=== PATIENT | male | born 1945 | race Caucasian/White ===

== ENCOUNTER 2024-06-11 23:04 | Inpatient (IN) | payer MEDICARE, OTHER, SELFPAY ==
[2024-06-11] VITALS (10 sets, daily range): BP systolic 99–157; BP diastolic 47–89; BMI 29.5; BMI 29.4
[2024-06-11 17:50] LABS: % Basophils 0.3 % (0-2); % Eosinophils 0.1 % (0-6); % Immature Granulocytes 0.4 % (0-0.5); % Lymphocytes 5.8 % (20.5-51.1); % Monocytes 0.8 % (1.7-9.3); % Neutrophils 92.6 % (42.2-75.2); Absolute Lymphocytes 0.5 10^3/uL (1.2-3.4); Absolute Monocytes 0.1 10^3/uL (0.1-0.6); Absolute Neutrophils 8.6 10^3/uL (1.4-6.5); Hematocrit 38.3 % (39.0-52.0); Mean Corp Hgb Conc. 36.6 g/dL (33.0-37.0); Mean Corpuscular Hgb 32.3 pg (27.0-31.0); Mean Corpuscular Volume 88.2 fL (80.0-94.0); Mean Platelet Volume 8.9 fL (7.4-10.4); Nucleated Red Blood Cells % 0 % (-); Platelet Count 127 10^3/uL (130-400); Red Blood Cell Count 4.34 10^6/uL (4.70-6.10); Red Cell Dist. Width 11.9 % (11.5-14.5); White Blood Cell Count 9.3 10^3/uL (4.8-10.8)
[2024-06-11 18:09] LABS: AST (SGOT) 27 U/L (17-59); Albumin 4.3 g/dl (3.5-5.0); Alkaline Phosphatase 78 U/L (38-126); Blood Urea Nitrogen 16 mg/dl (9-20); Calcium 9.4 mg/dl (8.4-10.2); Carbon Dioxide 20 mmol/L (22-30); Chloride 103 mmol/L (98-107); Glucose 165 mg/dl (70-99); Potassium 4.1 mmol/L (3.5-5.1); Sodium 138 mmol/L (135-145); Total Bilirubin 1.2 mg/dl (0.2-1.3); Total Protein 7.1 g/dl (6.3-8.2); eGFR > 60.00
[2024-06-11 18:26] LABS: ALT (SGPT) < 30 U/L (0-50)
[2024-06-11] MEDS: NSS 1000 IV (19:01)
[2024-06-11] MEDS: TYLENOL 1000 MG PO (19:01)
--- NOTE | 2024-06-11 19:15 | ED.GENMED ---
History of Present Illness
General
Chief Complaint: Abdominal Symptoms
Source: patient
Exam Limitations: none
Time Seen by Provider: 06/11/24 18:42
History of Present Illness
History of Present Illness:
This is a 77 year old male that comes in with c/o vomiting and just not feeling well. States that he was not feeling well after work today and that he vomited. States that it was several times but small amounts. States that he really did not feel
well this more as he takes Advil with Tylenol and he vomited this back up. States that he was recently diagnosed with Prostate cancer and daughter states that there is some question about mets to the bone. Patient denies any chemo or radation at
this time. States that he had a fever of 101.2 at home with shaking chills, nausea, vomiting, and dizzy if he gets up fast. States that he also had some burning with urination. Denies any chest pain, SOB, abd pain, diarrhea, headache.
Past History
Past History
ED Past Medical History: CAD, Cancer (Prostate CA) and Other (AAA, )
ED Past Surgical History: Cardiac (Stents)
Social History
Tobacco: Non-smoker
Alcohol: None
Personal:
Living: with family
Employment: Employed
Review of Systems
Review of Systems
All Other Systems: ROS reviewed and negative except as documented in HPI and ROS
Constitutional: Reports fever and chills
EENT: Reports no symptoms
Respiratory: Reports no symptoms; Denies cough or trouble breathing
Cardiac: Reports no symptoms; Denies chest pain
ABD/GI: Reports nausea and vomiting; Denies abdominal pain or diarrhea
: Reports dysuria; Denies frequency or urgency
Musculoskeletal: Reports no symptoms
Skin: Reports no symptoms
Neurological: Reports dizzy (if gets up fast); Denies headache
Psychiatric: Reports no symptoms
Phy Exam
General Physical Exam
General Presentation: no apparent distress
General age: appears stated age
General Skin: warm and dry
General Habitus: elderly
General Mental: alert
General Hydration: dry mucous membranes
ENT Exam
ENT Exam: TM's normal, pharynx normal and neck supple
Eye Exam
Eye Exam: EOMI
Cardiovascular Exam
Cardiovascular Exam: regular rate/rhythm, no edema, no murmur and normal peripheral pulses
Pulmonary Exam
Pulmonary Exam: lungs clear, no respiratory distress, no rales, chest non tender, no crackles, no rhonchi, no wheezing and no cough
Gastrointestinal Exam
Gastrointestinal Exam: normal bowel sounds, non tender, soft, no organomegaly, no pulsatile mass and non distended
Musculoskeletal Exam
Musculoskeletal Exam: full ROM and no edema
Skin Exam
Skin Exam: normal color, warm/dry, no rash and no petechia
Psychiatric Exam
Psychiatric Exam: normal mood/affect
Course
Orders/Labs/Results
Orders:
Orders
06/11/24 17:44
Complete Blood Count/With Diff Urgent
Comprehensive Metabolic Panel Urgent
06/11/24 18:52
0.9% Sodium Chloride 1000 ml [Nss] 1,000 ml IV BOLUS
06/11/24 18:53
Acetaminophen [Tylenol] 1,000 mg PO NOW STA
06/11/24 19:04
Lactate Level [Lactic Acid] Urgent
Troponin I Urgent
Urinalysis Reflex To Culture Urgent
Date Specimen was Collected: 06/11/24
Time Specimen was Collected: 18:55
Urine Microscopic Reflex Cult Urgent
Blood Culture Urgent
ISABELLA Source: Blood/Venous
Specimen Description:
Blood Culture Urgent
ISABELLA Source: Blood/Venous
Specimen Description:
Urine Culture Urgent
ISABELLA Source: U
Specimen Description:
Date Specimen was Collected: 06/11/24
Time Specimen was Collected: 18:55
06/11/24 19:16
Ondansetron Injectable [Zofran] 4 mg IV NOW STA
06/11/24 19:26
COVID-19 Antigen Urgent
Source: Nasal Swab
06/11/24 20:48
Lactic Acid Urgent
06/11/24 21:22
CefTRIAXone [Rocephin] 1,000 mg IV NOW STA
Abnormal Lab Results
06/11/24 06/11/24
17:44 19:04
RBC 4.34 L 10^6/uL
(4.70-6.10)
Hct 38.3 L %
(39.0-52.0)
MCH 32.3 H pg
(27.0-31.0)
Plt Count 127 L 10^3/uL
(130-400)
Absolute Neuts (auto) 8.6 H 10^3/uL
(1.4-6.5)
Absolute Lymphs (auto) 0.5 L 10^3/uL
(1.2-3.4)
Neutrophils % 92.6 H %
(42.2-75.2)
Lymphocytes % 5.8 L %
(20.5-51.1)
Monocytes % 0.8 L %
(1.7-9.3)
Carbon Dioxide 20 L mmol/L
(22-30)
Glucose 165 H mg/dl
(70-99)
Lactic Acid 2.1 H mmol/L
(0.7-2.0)
Urine Ketones 1+ A
(Negative)
Ur Occult Blood Reflex 4+ A
(Negative)
Urine Nitrite (Reflex) Positive A
(Negative)
Leukocyte Esterase Rfl 2+ A
(Negative)
Urine WBC (Reflex) >100 A /HPF
(0-5)
Urine Bacteria (Reflex) Moderate A
(Negative)
Urine Albumin (Reflex) 1+ A
(Neg - Trace)
06/11/24 17:44
06/11/24 17:44
Thrombocytopenia, Hyperglycemia, Carbon dioxide slightly low. Anion gap 15 Lactic acid 2.1, Troponin <0.012, COVID negative.
Urine positive for infection. Repeat lactic acid down to 1.8 after fluids
Vital Signs
Initial and Last Documented VS:
Initial Vital Signs
Temp Pulse Resp BP Pulse Ox
99.1 F 100 16 157/89 95
06/11/24 17:36 06/11/24 17:36 06/11/24 17:36 06/11/24 17:36 06/11/24 17:36
Last Documented Vital Signs
Temp Pulse Resp BP Pulse Ox
98.8 F 90 25 117/68 93
06/11/24 20:28 06/11/24 21:00 06/11/24 21:00 06/11/24 21:00 06/11/24 21:00
MDM/Problems Addressed
Differential Diagnosis Includes:
Viral syndrome, COVID, UTI
MDM/Problems Addressed:
This is a 78 year old male that comes in [facility] c/o vomiting and just not feeling well. States that this started after he got home from work. However, in further conversation patient did not fell well this morning and vomiting.
Will check labs. COVID, Urine.
Back into see patient and family. Explained that he has a uriniary tract infection. Will admit patient and start IV antibiotics. States that his nausea is better after the zofran. Hospitalist notified.
Chronic conditions affecting care:
NA
Acute Exacerbation and/or Progression of Chronic Illness:
NA
*Pulse Oximetry
Patient hypoxic: no
*Job Lithographer Interpretation
Rate: Job Lithographer- N/A
*Critical Care Note
Total Time (30-74mins, 75-104mins- exclusive of procedures): Not Applicable
ED Attending Note
-
Portions of this chart may have been created with voice recognition software.� Occasional wrong word or��sound alike� substitutions may have occurred due to the inherent limitations of voice recognition software.
Discharge Plan
Departure
Patient Disposition: Admit
Date of Disposition: 06/11/24
Time of Disposition: 21:27
Admit to: Med/Surg
Presentation/result/management discussed w/ accepting MD/DO: Hospitalist
Patient with high blood pressure during this ER visit?: No
Condition: Good
Covid-19: Negative COVID-19
Discharge Problem:
Urinary tract infection
Referrals:
Bouchra Atkins DO [Family Provider] -
Interventions
Interventions:
*Risk Screen - Suicide Last Done: 06/11/24 18:23
*General Assessment Last Done: 06/11/24 18:23
*Neglect/Abuse Screening Last Done: 06/11/24 18:23
ED- Fall Risk Assessment Last Done: 06/11/24 18:23
HX-Dzpejb-Aaorhccogy Assessment Last Done: 06/11/24 18:23
Discharge Date and Time
Print Language: SYRIAC
[2024-06-11] MEDS: ZOFRAN 4 MG IV (19:26)
[2024-06-11 19:38] LABS: Lactic Acid 2.1 mmol/L (0.7-2.0)
[2024-06-11 19:51] LABS: Troponin I < 0.012 ng/ml
[2024-06-11 19:53] LABS: COVID-19 Antigen Negative (Negative)
[2024-06-11 20:50] LABS: Urine Albumin 1+ (Neg - Trace); Urine Bilirubin Negative (Negative); Urine Character Very Cloudy (Clear); Urine Color Yellow; Urine Glucose Negative (Negative); Urine Ketone 1+ (Negative); Urine Leukocyte 2+ (Negative); Urine Nitrite Positive (Negative); Urine Occult Blood 4+ (Negative); Urine Urobilinogen Negative (Neg - 1+)
[2024-06-11 21:05] LABS: Lactic Acid 1.8 mmol/L (0.7-2.0)
[2024-06-11 21:16] LABS: Urine White Cell >100 /HPF (0-5)
[2024-06-11 21:17] LABS: Urine Bacteria Moderate (Negative)
[2024-06-11] MEDS: ROCEPHIN 1000 MG IV (21:28)
--- NOTE | 2024-06-11 21:32 | HPS.HSE ---
Family Physician
-
Family Physician: Bouchra Atkins
Chief Complaint
-
vomitting
History of Present Illness
77 year old male with past medical history for coronary artery disease status post cardiac stent, hyperlipidemia, hypertension, recently diagnosed prostate cancer urinary frequency last night, dysuria, multiple episodes of vomiting bile, shakes and
fever 101.2. Patient denied any headache, dizziness, syncopal episode. Patient denied any chest pain, short of breath, runny nose, congestion. Patient denied any abdominal and diarrhea.
Positive urinalysis. Received a dose of ceftriaxone, Tylenol, Zofran, normal saline. Blood culture sent from ER
Medical History
Past Medical History
Past Medical History: Reports Other
Additional Past Medical History:
coronary artery disease
Hyperlipidemia
Hypertension
Past Surgical History: Reports Other
Additional Past Surgical History:
Cardiac stents
Left knee replacement
Sinus surgery
Social History
Tobacco: Non-smoker
Alcohol: Occasional
Drug: None
Personal:
Living: With Family
Family History
Family History: Not pertinent
Allergies / Home Medications
Allergies reflects when Allergies were last updated in [email or web address].
Home Medications with original date entered in [email or web address]
Allergy/Medication List:
Allergies
Allergy/AdvReac Type Severity Reaction Status Date / Time
No Known Allergies Allergy Unverified 06/11/24 18:50
Home Medications
aspirin 81 mg chewable tablet 81 mg PO DAILY 06/11/24
atorvastatin 20 mg tablet 20 mg PO DAILY 06/11/24
ibuprofen 125 mg-acetaminophen 250 mg tablet (Advil Dual Action) 1 tab PO Q8HPRN PRN mild pain 06/11/24
metoprolol succinate 25 mg tablet,extended release 24 hr 12.5 mg PO DAILY 06/11/24
therapeutic multivitamin 1 tab PO DAILY 06/11/24
Review of Systems
-
Constitutional: Reports Fever, Fatigue and Chills
EENT: Reports No Symptoms
Respiratory: Reports No Symptoms
Cardiac: Reports No Symptoms
Abdomen/GI: Reports Vomiting
: Reports Dysuria and Frequency
Musculoskeletal: Reports No Symptoms
Skin: Reports No Symptoms
Neurological: Reports No Symptoms
Endocrine: Reports No Symptoms
Hematologic/Lymphatic: Reports No Symptoms
Psych: Reports No Symptoms
Physical Exam
Vital Signs
Vital Signs
Temp Pulse Resp BP Pulse Ox
98.8 F 90 25 117/68 93
06/11/24 20:28 06/11/24 21:00 06/11/24 21:00 06/11/24 21:00 06/11/24 21:00
Physical Exam
General: Well Developed, Well Nourished and No Apparent Distress
HEENT: NormoCephalic, Moist mucous membranes and Atraumatic
Respiratory: Clear
Cardiac: S1/S2 and Regular Rhythm; No Murmur or Rub
GI: Soft, Non Tender, Non Distended and Normal Bowel Sounds; No Organomegaly
Rectal: Deferred by Provider
Musculoskeletal: No Clubbing, No Cyanosis and No Edema
Skin: No Rash
Neuro: AO x 3 and Nonfocal/grossly intact
Psych: Calm
Laboratory Results
-
06/11/24 17:44
06/11/24 17:44
Laboratory Results
Lactic Acid 1.8 mmol/L (0.7-2.0) 06/11/24 20:48
Total Bilirubin 1.2 mg/dl (0.2-1.3) 06/11/24 17:44
AST 27 U/L (17-59) 06/11/24 17:44
ALT < 30 U/L (0-50) 06/11/24 17:44
Alkaline Phosphatase 78 U/L (38-126) 06/11/24 17:44
Troponin I < 0.012 ng/ml 06/11/24 19:04
Data Reviewed
-
Lab Data: Labs Reviewed by me
Impression/Plan
-
# Urinary tract infection
-IV ceftriaxone
-blood cultures and urine culture sent from ER
-Fluids continued
-Continue to monitor
# coronary artery disease
-Status post cardiac stent
-Aspirin continued
#hyperlipidemia
-Statin continued
#essential hypertension
-Hold metoprolol
# DVT prophylaxis
-Heparin subcu
# Newly diagnosis of prostate cancer
-Follows with urology as outpatient
# CODE STATUS
-Full code
--- NOTE | 2024-06-11 21:52 | W.PN.UPDATE ---
Update Note
Progress Note Update
This note serves as an addendum to the H&P by critical care physician assistant JANA Varsha SHIELDS
HPI
77M recently Dxed Prostate CA, CAD with stents seen at ER for evaluation of vomiting and become unwell.
- At home, fever of 101.2 with chills associated with nausea and vomiting several times but small amounts.
- Not tolerated to Advil with Tylenol and he vomited this back up. S
- No recent chemo or XRT at this time.
F/U at [facility] for prostate CA
- s/p Prostate Biopsy 4 weeks ago
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
ROS
- Dizzy if he gets up fast
- Some burning with urination.
- Denies any chest pain, SOB, abd pain, diarrhea, headache.
Reviewed VS: T max at ER 100.1 BP 117/68 HR 90
PE
Gen: NAD, not toxic looking
HEENT: anicteric
Neck: supple
Lungs: CTA
Cor: RRR S1 S2
Abdomen: soft benign abdomen
GORE SEAMER: AA O3
MS: No edema
Psych: nl mood and affect
Data
Laboratory Tests
06/11/24 06/11/24 06/11/24
17:44 19:04 19:26
WBC 9.3
Hgb 14.0
Plt Count 127 L
Creatinine 1.1
eGFR > 60.00
Lactic Acid 1.8
Troponin I < 0.012
Urine Nitrite (Reflex) Positive A
Leukocyte Esterase Rfl 2+ A
Urine WBC (Reflex) >100 A
Urine Bacteria (Reflex) Moderate A
SARS-CoV-2 Antigen Negative
BCx sent
No prior DH admission:
ASSESSMENT & PLAN
Symptomatic UTI associated with chills and vomiting
- Thrombocytopenia due to impending sepsis
- at risk for evoking sepsis
- Evaluate for bacteremia: f/u BCx
- f/u UCx
- s/p 1 L NS IVF - cont IV NS @ 100/H
- Empiric IV CFTZ
Recently Dxed prostate CA
- Recent whole body CT scan POS for metastatic spine dz
- not on chemo or XRT
- F/U at [facility] for prostate CA - obtain records
- Family favors out patient f/u with Urologist
Essential HTN
- Not on any anti HTN meds
HX CAD with stents
Family is inquiring about base PCP
DVT Px: SQH
Code: Full
IP TLM
[2024-06-12] VITALS (12 sets, daily range): BP systolic 105–151; BP diastolic 60–121
[2024-06-12] MEDS: NSS 1000 IV ×3 (00:03→20:12)
[2024-06-12] MEDS: TYLENOL 650 MG PO ×2 (03:21→20:14)
[2024-06-12 06:48] LABS: Glucose - Point of Care 127 mg/dl (70-99)
[2024-06-12] MEDS: OFIRMEV 100 IV (07:04)
--- NOTE | 2024-06-12 07:08 | W.PN.UPDATE ---
Update Note
Progress Note Update
Rapid response called for patient rigoring with temp 103.1. Admitted last evening with UTI and has hx of prostate issue. Was given Ceftriaxone and started on NS IVF. Lactic at that time was <2. Ofirmiv ordered for now as well as cooling blanket.
Blood cultures drawn on admit. TT to Dr. Steiner for day team follow up.
[2024-06-12 07:33] LABS: AST (SGOT) 31 U/L (17-59); Albumin 4.1 g/dl (3.5-5.0); Alkaline Phosphatase 72 U/L (38-126); Blood Urea Nitrogen 16 mg/dl (9-20); Carbon Dioxide 15 mmol/L (22-30); Chloride 105 mmol/L (98-107); Estimated Creatinine Clearance 51 ml/min; Glucose 144 mg/dl (70-99); Potassium 4.4 mmol/L (3.5-5.1); Sodium 139 mmol/L (135-145); Total Bilirubin 1.5 mg/dl (0.2-1.3); Total Protein 6.7 g/dl (6.3-8.2); eGFR > 60.00
[2024-06-12 07:36] LABS: Lactic Acid 8.1 mmol/L (0.7-2.0)
[2024-06-12 07:44] LABS: Hematocrit 37.9 % (39.0-52.0); Hemoglobin 13.4 g/dL (13.0-18.0); Mean Corp Hgb Conc. 35.4 g/dL (33.0-37.0); Mean Corpuscular Volume 87.7 fL (80.0-94.0); Mean Platelet Volume 9.3 fL (7.4-10.4); Platelet Count 156 10^3/uL (130-400); Red Blood Cell Count 4.32 10^6/uL (4.70-6.10); Red Cell Dist. Width 12.1 % (11.5-14.5)
[2024-06-12 07:47] LABS: Troponin I 0.112 ng/ml
--- NOTE | 2024-06-12 07:50 | PTCARENOTE ---
Pt heart rate was in the 130-140's. Pt was shaking , diaphoretic, and labor breathing. Pt appear pale and desaturating in the low 90s' in RA. Pt was placed on 6L O2 for comfort. pt was unable to control i shakes and he had a temp of 103.1
Axillary. RR was called. Labs taking and IV acetomorphine order. Pt had an episode of vomit and incontinence. Hospitalist notified. Cooling blanket order. Pt eventually felt better and the shivering was under control. O2 weaned to 4L NC. Pt was
placed on cooling blanket, with a rectal temp of 104.5. Report was given to AM RN
[2024-06-12 08:22] LABS: ALT (SGPT) 32 U/L (0-50)
[2024-06-12 08:24] LABS: Hepatitis C Antibody Negative (Negative)
[2024-06-12] MEDS: LIPITOR 20 MG PO (08:34)
[2024-06-12] MEDS: LOW STRENGTH ASPIRIN 81 MG PO (08:34)
[2024-06-12] MEDS: HEPARIN 5000 UNITS SC ×2 (08:35→20:14)
[2024-06-12 08:58] LABS: Absolute Neutrophils -Man Diff 3.8 10^3/uL (1.4-6.5); Band Neutrophils 16 % (0-3); Lymphocytes 23 % (20-51); Segmented Neutrophils 60 % (42-75)
[2024-06-12 08:59] LABS: Normal RBC Morphology Yes; Platelets Checked Yes; Total Cells Counted 100
--- NOTE | 2024-06-12 09:04 | W.PN.HOSP.TC ---
Today's Communication/Plan
-
IV antibiotics pending cultures IV fluids
Bladder scan for retention
Trend troponin.
ECG.
Echo
Assessment / Plan
Assessment / Plan
Impression:
Urinary tract infection
Sepsis secondary to above
Gram-negative bacteremia
Non-NH troponin elevation
Other conditions
Recently diagnosed prostate carcinoma with ongoing workup.
CAD with multiple stents
Plan:
UTI
Evolving sepsis with gram-negative bacteremia.
Presenting with fever, rigors, dysuria and sense of retention at home.
Status post prostate biopsy months prior to presentation with new diagnosis of prostate carcinoma.
Bladder scan.
Bladder and renal sonogram.
Empiric antibiotics initiated ceftriaxone
ID consultation/urology consultation
Repeat blood culture for clearance.
Continue isotonic solution
Serial lactate levels
Non-NH troponin elevation
CAD with stents
ECG with sinus tachycardia and RBBB.
Chest pain-free.
Trend troponin.
Echocardiogram pending
Continue metoprolol and statin
Continue aspirin.
Medical records from PMD, urology, cardiology requested
Anticipated Discharge: > 48 hours
Subjective/Interval History
-
Date of Service: June 12, 2024
Objective Data
-
Labs:
Laboratory Results
06/12/24 06/12/24
06:00 07:04
WBC Cancelled 5.0
Hgb Cancelled 13.4
Hct Cancelled 37.9 L
Plt Count Cancelled 156 D
Sodium Cancelled 139
Potassium Cancelled 4.4
Chloride Cancelled 105
Carbon Dioxide Cancelled 15 L
BUN Cancelled 16
Creatinine Cancelled 1.2
Glucose Cancelled 144 H
Calcium Cancelled 9.0
Total Bilirubin 1.5 H
AST 31
ALT 32
Alkaline Phosphatase 72
Vital Signs:
Vital Signs
Temp Pulse Resp BP Pulse Ox
98.3 F 92 18 115/60 98
06/12/24 08:12 06/12/24 08:12 06/12/24 08:12 06/12/24 08:12 06/12/24 08:12
I&O
06/11/24 06/12/24 06/13/24
06:59 06:59 06:59
Intake Total 880 / 880
Output Total 460 / 460
Balance 420 / 420
Physical Exam
-
General: Well Developed and No Apparent Distress
HEENT: Normocephalic, Atraumatic and Moist Mucous Membranes
Respiratory: Clear to Auscultation
Cardiac: Regular Rhythm and S1/S2; Negative Murmur, Rub or Gallop
GI: Soft, Nontender, Nondistended and Normal Bowel Sounds; Negative Organomegaly
Rectal: Deferred by Provider
Musculoskeletal: No Clubbing, No Cyanosis and No Edema
Skin: Negative Rash
Neuro: Awake, Alert, Oriented, AO x 3 and Nonfocal/Grossly Intact
--- NOTE | 2024-06-12 09:11 | CON.ID ---
Consultation
-
Date/Time Consultation Requested: 06/12/2024 0853
Date/Time Consultation Performed: 06/12/2024 0915
Requesting Provider: Dr. Colby Steiner
Performing Provider: Dr. Apple Childress
Reason for Consultation: UTI/bacteremia
Chief Complaint / Past History
Chief Complaint
Painful urination
History of Present Illness
78-year-old male with recent diagnosis of prostate cancer a month ago at [facility] who presented to the hospital on June 11 with acute onset of dysuria, urinary frequency, fevers and chills. No gross hematuria. No flank pain. He was
started on ceftriaxone for UTI. Overnight he developed fever up to 104.5. Admission blood cultures are positive for gram-negative bernadette. Patient reports no history of UTIs in the past. He received antibiotic before and after prostate biopsy last
month. He could not recall the name of the antibiotic.
Past History
Additional Past Medical History:
HTN
Dyslipedemia
CAD s/p stent
prostate CA, recent dx, not on tx
L TKA
Allergy History:
No Known Allergies Allergy (Unverified 06/11/24 18:50)
Medications Reviewed: Yes
Current Antibiotics:
Ceftriaxone d2
Social History
Tobacco: Non-Smoker
Alcohol: Occasional
Drug: None
Personal:
Family History
Family History: Not Pertinent
Review of Systems
Review of Systems
General: Fever, Chills and Change in Appetite
HEENT: Negative Sinus Problems or Headache
Cardiovascular: Negative Chest Pain or Dyspnea
Respiratory: Negative Dyspnea or Cough
Gasteroenterology: Nausea and Other (no diarrhea); Negative Vomiting
Genital / Urological: Dysuria; Negative Hematuria or Flank Pain
Endocrine: Weakness
Skin / Hair / Nails: Negative Rash
Neurological: Negative Headache or Dizziness
All systems: All other systems were reviewed and were negative
Vital Signs
Temp Pulse Resp BP Pulse Ox
98.3 F 92 18 115/60 98
06/12/24 08:12 06/12/24 08:12 06/12/24 08:12 06/12/24 08:12 06/12/24 08:12
Selected Entries
06/12/24
07:45
Temp 104.5 F H
Physical Exam
Physical Exam
Constitutional: No Acute Distress and Comfortable
Eyes: No Conjunctival Hemorrhage and Sclera Anicteric
Cardiovascular: Regular Rate and S1/S2
Pulmonary: Clear
Gastrointestinal: Non Tender, Non Distended and Normal Bowel Sounds
Genito-Urinary: Bauer and Clear Urine; Negative CVA Tenderness
Extremities: Negative Edema
Neurological: AO x 3
Lab / Diagnostic Study Results
06/12/24 07:04
06/12/24 07:04
Abs Immat Gran (auto) 0.0 10^3/uL (0-0.05) 06/11/24 17:44
Absolute Neuts (auto) 8.6 10^3/uL (1.4-6.5) H 06/11/24 17:44
Absolute Lymphs (auto) 0.5 10^3/uL (1.2-3.4) L 06/11/24 17:44
Absolute Monos (auto) 0.1 10^3/uL (0.1-0.6) 06/11/24 17:44
Absolute Basos (auto) 0.0 10^3/uL (0-0.2) 06/11/24 17:44
Total Counted 100 06/12/24 07:04
Immature Gran % 0.4 % (0-0.5) 06/11/24 17:44
Neutrophils % 92.6 % (42.2-75.2) H 06/11/24 17:44
Lymphocytes % 5.8 % (20.5-51.1) L 06/11/24 17:44
Monocytes % 0.8 % (1.7-9.3) L 06/11/24 17:44
Eosinophils % 0.1 % (0-6) 06/11/24 17:44
Basophils % 0.3 % (0-2) 06/11/24 17:44
Abs Neuts (Manual) 3.8 10^3/uL (1.4-6.5) 06/12/24 07:04
Segmented Neutrophils 60 % (42-75) 06/12/24 07:04
Band Neutrophils 16 % (0-3) H 06/12/24 07:04
Lymphocytes (Manual) 23 % (20-51) 06/12/24 07:04
Lactic Acid 8.1 mmol/L (0.7-2.0) H* 06/12/24 07:04
Microbiology Results
Micro:
06/11/24 19:04 Blood Culture - Preliminary
Blood/Venous Positive culture in progress
Gram Stain - Preliminary
06/11/24 19:04 Blood Culture - Preliminary
Blood/Venous Positive culture in progress
Gram Stain - Preliminary
06/11/24 19:04 Urine Culture - Pending
Urine
Assessment / Plan
# Complicated UTI
# ESBL-Klebsiella bacteremia
# Recent hx prostate bx, + localized prostate CA
# Fever, bandemia
- DC ceftriaxone.
-Start Ertapenem 1g IV q24.
- Agree with CT a/p
- Repeat bcx in am.
- Trend temp
--- NOTE | 2024-06-12 09:41 | W.PN.UPDATE ---
Update Note
Progress Note Update
Given fairly recent prostate biopsy and reasonable concern for abscess, will order CT scan of abdomen and pelvis.
[2024-06-12 09:45] LABS: Lactic Acid 3.1 mmol/L (0.7-2.0)
[2024-06-12] MEDS: OMNIPAQUE 50 ML PO (10:38)
[2024-06-12] MEDS: INVANZ 60 MG IV (15:20)
--- NOTE | 2024-06-12 16:17 | PTCARENOTE ---
Patient transferred to IMU s/p rapid response due to sepsis. CT scan and Echo completed. Patient denying pain when asked. Bladder scan completed and results discussed with urology. Patient is afebrile. Vital signs stable. Family at bedside.
[2024-06-12] MEDS: SENOKOT-S 1 TABLET PO (17:06)
--- NOTE | 2024-06-12 17:18 | W.PN.URO.CBU ---
Today's Communication / Plan
-
no gu changes
Assessment / Plan
-
uroepsis s/p reote postae bx agree with iv ans pt is voind to completio ct scan reviewed no abcess continue present care
Diagnosis
-
Date of Service: June 12, 2024
-
Patient Diagnosis:sepsis 1 month after transrecta l needle bx pda 10 pos postae ancer had abs x wek then off 1 weklater had dysuria frequeny no rettention temp 104 ps blood cxs beeter now on iv abs
Post Op Day:
Subjective
-
improving ,min systemic ciomplaints voidin wbetteer
Objective
-
Vital Signs
Temp Pulse Resp BP Pulse Ox
98.5 F 92 18 115/60 98
06/12/24 15:00 06/12/24 08:12 06/12/24 08:12 06/12/24 08:12 06/12/24 08:12
Intake and Output
06/11/24 06/12/24 06/13/24
06:59 06:59 06:59
Intake Total 880 / 880 1750 / 1750
Output Total 460 / 460 440 / 440
Balance 420 / 420 1310 / 1310
Intake:
Oral fluids 120 / 120 200 / 200
IV fluids (Total) 760 / 760 1500 / 1500
IV piggybacks 50 / 50
Output:
Urine, Voided 10 10 440 / 440
Straight cath output 450 / 450
Laboratory Results
06/12/24 07:04
06/12/24 07:04
Review of Systems
-
Constitutional: Fever, Fatigue, Night Sweats and Chills
: Dysuria and Frequency
Physical Exam
-
General - well developed, well nourished, no acute distress
Chest - clear bilaterally
Abdomen - soft, non-tender, positive bowel sounds, no CVAT, no incisional pain or distention
Genitalia - normal
Rectal - normal
Skin - warm & dry with no rash
Neuro - AOx3, no motor deficits
Extremities - no clubbing, no cyanosis, no edema
Incision - clean, dry
Dressing - clean, dry, intact
Care Review
Data Reviewed
Discussed with: Internal Medicine, Nursing and Family
CT Scan: Image Pers Reviewed
[2024-06-12 18:13] LABS: Lactic Acid 4.3 mmol/L (0.7-2.0)
--- NOTE | 2024-06-12 18:27 | PTCARENOTE ---
Patient having difficulty urinating. Bladder scan 525, straight cath for 400 of clear yellow urine.
--- NOTE | 2024-06-12 23:11 | PTCARENOTE ---
Pt received at beginning of shift resting in bed. AAOx3. Slightly forgetful. Bed alarm on and working. Frequent needs to use urinal with <10ml urine output each time. Bladder scanned for 303 and 475. Ruth MANDEL TT'd and made aware after
multiple straight caths. Lewis ordered and placed after explanation to pt of process. Thermistor lewis placed without issue. Immediate return of 500mls cloudy yellow urine in collection bag. Stat lock placed. Admits to Naylor administered Tylenol with
good relief. Current temp 99.5. Rest of VSS. IVF infusing as ordered. Rest of assessment as documented. Turns self in bed. Call sanders within reach. Will continue to monitor.
[2024-06-13] VITALS (9 sets, daily range): BP systolic 115–146; BP diastolic 65–79
[2024-06-13] MEDS: NSS 1000 IV (04:02)
[2024-06-13 04:15] LABS: Hematocrit 32.2 % (39.0-52.0); Hemoglobin 11.8 g/dL (13.0-18.0); Mean Corp Hgb Conc. 36.6 g/dL (33.0-37.0); Mean Corpuscular Hgb 32.6 pg (27.0-31.0); Red Blood Cell Count 3.62 10^6/uL (4.70-6.10); White Blood Cell Count 7.7 10^3/uL (4.8-10.8)
[2024-06-13 04:24] LABS: Mean Platelet Volume 9.2 fL (7.4-10.4); Platelet Count 94 10^3/uL (130-400)
[2024-06-13 04:30] LABS: Blood Urea Nitrogen 14 mg/dl (9-20); Calcium 8.3 mg/dl (8.4-10.2); Carbon Dioxide 20 mmol/L (22-30); Chloride 106 mmol/L (98-107); Estimated Creatinine Clearance 61 ml/min; Glucose 110 mg/dl (70-99); Sodium 137 mmol/L (135-145); eGFR > 60.00
[2024-06-13] MEDS: HEPARIN 5000 UNITS SC ×2 (08:01→20:17)
[2024-06-13] MEDS: LOW STRENGTH ASPIRIN 81 MG PO (08:02)
[2024-06-13] MEDS: LIPITOR 20 MG PO (08:02)
[2024-06-13] MEDS: FLOMAX 0.4 MG PO (09:59)
--- NOTE | 2024-06-13 10:30 | W.PN.ID1 ---
Date of Service
Date of Service: June 13, 2024
Today's Communication
c/w ertapenem
Assessment / Plan
# Complicated UTI
# ESBL-Klebsiella bacteremia
# Recent hx prostate bx, + localized prostate CA
# Fever, bandemia
- c/w Ertapenem 1g IV q24 awaiting sensitivities
- note prolonged QTc on last EKG, however was tachycardic
- CT AP nonrevealing
- 06/13 blood culture in progress no growth to date
- Trend temp
Chief Complaint
-: UTI
Subjective / Review of Systems
afebrile
BP stable
prostate biopsy was 1 month ago
Vital Signs / Physical Exam
Vital Signs
Vital Signs
Temp Pulse Resp BP Pulse Ox
99.7 F 78 22 129/77 97
06/13/24 07:54 06/13/24 08:00 06/13/24 08:00 06/13/24 08:00 06/13/24 08:00
Physical Exam
Constitutional: No Acute Distress
Cardiovascular: Regular Rate and S1/S2; Negative Murmur or Rub
Pulmonary: Clear and Symmetric; Negative Wheezes or Rales
Gastrointestinal: Soft, Non Tender, Non Distended and Normal Bowel Sounds
Genito-Urinary: Clear Urine
Skin: Warm and Dry; Negative Rash or Jaundice
Objective Data
Lab Data
Lab Results
06/13/24 03:58
06/13/24 03:58
Estimated Creat Clear 61 ml/min 06/13/24 03:58
Lactic Acid 1.0 mmol/L (0.7-2.0) 06/12/24 21:54
Total Bilirubin 1.5 mg/dl (0.2-1.3) H 06/12/24 07:04
AST 31 U/L (17-59) 06/12/24 07:04
ALT 32 U/L (0-50) 06/12/24 07:04
Alkaline Phosphatase 72 U/L (38-126) 06/12/24 07:04
Most recent labs reviewed.
Micro Results:
06/11/24 19:04 Urine Culture - Preliminary
Urine Gram negative bacilli
06/12/24 09:22 Blood Culture - Preliminary
Blood/Venous Positive culture in progress
Gram Stain - Preliminary
06/13/24 03:58 Blood Culture - Pending
Blood/Venous
06/11/24 19:04 Blood Culture - Preliminary
Blood/Venous Klebsiella pneumoniae-ESBL
Gram Stain - Final
06/11/24 19:04 Blood Culture - Preliminary
Blood/Venous Positive culture in progress
Gram Stain - Final
--- NOTE | 2024-06-13 11:49 | W.PN.URO.CBU ---
Today's Communication / Plan
-
continue present care
Assessment / Plan
-
uroepsis s/p reote postae bx agree with iv ans pt is voind to completio ct scan reviewed no abcess continue present care add flomax voiding trial if stablke saturday
Diagnosis
-
Date of Service: June 13, 2024
-
Patient Diagnosis:
Post Op Day:
Patient Diagnosis:sepsis 1 month after transrecta l needle bx pda 10 pos postae ancer had abs x wek then off 1 weklater had dysuria frequeny no rettention temp 104 ps blood cxs beeter now on iv abs
Post Op Day:
Subjective
-
much better bot pvr 500 and lewis placed
Objective
-
Vital Signs
Temp Pulse Resp BP Pulse Ox
99.7 F 78 22 129/77 97
06/13/24 07:54 06/13/24 08:00 06/13/24 08:00 06/13/24 08:00 06/13/24 08:00
Intake and Output
06/12/24 06/13/24 06/14/24
06:59 06:59 06:59
Intake Total 880 / 880 3350 / 3350
Output Total 460 / 460 1590 / 1590
Balance 420 / 420 1760 / 1760
Intake:
Oral fluids 120 / 120 300 / 300
IV fluids (Total) 760 / 760 3000 / 3000
IV piggybacks 50 / 50
Output:
Urine, Lewis 750 / 750
Urine, Voided 440 / 440
Straight cath output 450 / 450 400 / 400
Laboratory Results
06/13/24 03:58
06/13/24 03:58
Review of Systems
-
: Difficulty Voiding
Physical Exam
-
General - well developed, well nourished, no acute distress
Chest - clear bilaterally
Abdomen - soft, non-tender, positive bowel sounds, no CVAT, no incisional pain or distention
Genitalia - normal
Rectal - normal
Skin - warm & dry with no rash
Neuro - AOx3, no motor deficits
Extremities - no clubbing, no cyanosis, no edema
Incision - clean, dry
Dressing - clean, dry, intact
Care Review
Data Reviewed
Discussed with: Hospitalist, Nursing and Family
CT Scan: Image Pers Reviewed
--- NOTE | 2024-06-13 14:08 | W.PN.HOSP.TC ---
Addendum entered and electronically signed by Luis Felipe Keita MD 06/13/24 16:46:
I saw and evaluated the patient. I reviewed the resident�s note and agree with findings and plan as documented in the resident�s note.
1. ESBL Klebsiella pneumonia UTI/bacteremia -patient underwent recent prostatic biopsy and started to having new onset of urinary discomfort/nausea/vomiting. In ER UA showing significant pyuria and bacteriuria. CT abdomen pelvis showing
prostatomegaly. No nephrolithiasis/hydronephrosis. Urine culture and blood culture reporting positive for ESBL Klebsiella pneumonia. ID involved and is currently on ertapenem. Repeat blood culture positive again from gram-negative bacilli today
2. History of prostate cancer/acute urinary retention-follows up with urologist at [facility]. Patient have some urinary retention and Bauer catheter was placed. Urology reviewed and will attempt a voiding trial. Flomax provided on urology
recommendation
3. Troponin elevation from nonischemic cardiomyopathy related -echocardiogram showing preserved EF. Have history of CAD. No ongoing chest pain.
Patient be transferred to [facility]
Original Note:
Today's Communication/Plan
-
Downgrade to med/surg
Continue ertapenem - day 2
Start Flomax
Monitor temp curve and WBC count
Assessment / Plan
Assessment / Plan
Impression:
Complicated Urinary tract infection vs prostatitis
ESBL Klebsiella bacteremia
Constipation
Non-[place] troponin elevation
HLD
History of CAD
Recent dx of prostate cancer
Plan:
Complicated UTI vs prostatitis
Afebrile, no leukocytosis, stable.
Denies abdominal pain, back pain. N,V
Repeat 1/2 positive for the ESBL Klebsiella.
UC positive for the same
Continue medical management with Ertapenem (strong gram neg coverage) - day 2
Start Flomax to help bladder relaxation
Bauer in situ
CT scan negative for pelvic abscess.
ID and urology following
ESBL Klebsiella bacteriemia
Hemodynamically stable
repeat blood cultures
Monitor temp curve and WBC count
Downgrade to med/surg
Constipation
Ordered Colace BID as needed
Non troponin [place] elevation
possible due to infection
Levels are trending down - 1.130<1.790
HLD
Continue atorvastatin
History of CAD
Continue ASA, toprol
Denies CP, SOB.
EKG changes showed RBBB and sinus tachy. However patient's HR today is normal. Elevation of HR likely due to infection/fever.
ECHO findings - Normal left ventricular size, wall thickness and systolic function. No regional wall motion abnormalities are seen. LV ejection fraction is 60-65%.
Recent dx of prostate cancer
CODE STATUS - FULL CODE
DVT ppx- Heparin SC
DIET- chol lowering
Anticipated Discharge: 24 - 48 hours
Subjective/Interval History
-
Date of Service: June 13, 2024
Patient denies abdominal pain, nausea, vomiting. He reports of being constipated. He was given docusate last night which improved his BM. Patient has a fever of 100.2 last night. Denies chills, fatigue.
Objective Data
-
Labs:
Laboratory Results
06/13/24
03:58
WBC 7.7
Hgb 11.8 L
Hct 32.2 L
Plt Count 94 L D
Sodium 137
Potassium 4.0
Chloride 106
Carbon Dioxide 20 L
BUN 14
Creatinine 1.0
Glucose 110 H
Calcium 8.3 L
Vital Signs:
Vital Signs
Temp Pulse Resp BP Pulse Ox
100.6 F H 82 25 132/68 97
06/13/24 11:00 06/13/24 12:00 06/13/24 12:00 06/13/24 12:00 06/13/24 12:00
I&O
06/12/24 06/13/24 06/14/24
06:59 06:59 06:59
Intake Total 880 / 880 3350 / 3350
Output Total 460 / 460 1590 / 1590
Balance 420 / 420 1760 / 1760
Review of Systems
-
History Source: Patient
All other systems: Reviewed and negative
Physical Exam
-
General: Comfortable and Conversant
HEENT: Normocephalic and Atraumatic
Respiratory: Clear to Auscultation
Cardiac: Regular Rhythm and S1/S2
GI: Soft, Nontender and Nondistended
Genito-urinary: Bauer
Musculoskeletal: No Edema
Neuro: AO x 3
Psych: Calm
Data Reviewed
-
CT Scan: Report Reviewed by me and Discussed with Physician
Labs: Labs Reviewed by me and Discussed with Physician
[2024-06-13] MEDS: INVANZ 60 MG IV (14:57)
[2024-06-13] MEDS: TYLENOL 650 MG PO ×2 (16:16→20:17)
[2024-06-13] MEDS: COLACE 100 MG PO (20:17)
[2024-06-14] VITALS: BP 133/76
[2024-06-14 04:43] LABS: % Basophils 0.4 % (0-2); % Eosinophils 0.4 % (0-6); % Immature Granulocytes 0.4 % (0-0.5); % Lymphocytes 11.1 % (20.5-51.1); % Monocytes 4.7 % (1.7-9.3); Absolute Lymphocytes 0.6 10^3/uL (1.2-3.4); Absolute Monocytes 0.3 10^3/uL (0.1-0.6); Absolute Neutrophils 4.6 10^3/uL (1.4-6.5); Hematocrit 33.6 % (39.0-52.0); Hemoglobin 12.2 g/dL (13.0-18.0); Mean Corp Hgb Conc. 36.3 g/dL (33.0-37.0); Mean Corpuscular Volume 88.2 fL (80.0-94.0); Nucleated Red Blood Cells % 0 % (-); Platelet Count 122 10^3/uL (130-400); Red Blood Cell Count 3.81 10^6/uL (4.70-6.10); Red Cell Dist. Width 11.9 % (11.5-14.5); White Blood Cell Count 5.5 10^3/uL (4.8-10.8)
[2024-06-14 05:02] LABS: Blood Urea Nitrogen 12 mg/dl (9-20); Calcium 8.3 mg/dl (8.4-10.2); Carbon Dioxide 23 mmol/L (22-30); Chloride 106 mmol/L (98-107); Estimated Creatinine Clearance 68 ml/min; Glucose 111 mg/dl (70-99); Sodium 138 mmol/L (135-145); eGFR > 60.00
--- NOTE | 2024-06-14 05:02 | PTCARENOTE ---
Pt appeared to have a good nights rest. respirations even and unlabored. Vitals stable at this time. Temp remaining under 99.0. Call sanders with inreach. Bed alarm on. Assessment care and vitals as charted.
[2024-06-14 05:12] LABS: Troponin I 0.282 ng/ml
[2024-06-14] MEDS: FLOMAX 0.4 MG PO (07:51)
[2024-06-14] MEDS: HEPARIN 5000 UNITS SC ×2 (07:51→20:33)
[2024-06-14] MEDS: LIPITOR 20 MG PO (07:51)
[2024-06-14] MEDS: LOW STRENGTH ASPIRIN 81 MG PO (07:51)
[2024-06-14 08:00] VITALS: BP 143/86
--- NOTE | 2024-06-14 08:34 | W.PN.HOSP.TC ---
Addendum entered and electronically signed by Luis Felipe Keita MD 06/14/24 13:59:
I saw and evaluated the patient. I reviewed the resident�s note and agree with findings and plan as documented in the resident�s note.
1. ESBL Klebsiella pneumonia UTI/bacteremia -patient underwent recent prostatic biopsy and started to having new onset of urinary discomfort/nausea/vomiting. In ER UA showing significant pyuria and bacteriuria. CT abdomen pelvis showing
prostatomegaly. No nephrolithiasis/hydronephrosis. Urine culture and blood culture reporting positive for ESBL Klebsiella pneumonia. ID involved and is currently on ertapenem. Repeat blood culture positive for klebsiella.
2. History of prostate cancer/acute urinary retention-follows up with urologist at [facility]. Patient have some urinary retention and Bauer catheter was placed. Urology reviewed and will attempt a voiding trial. Flomax provided on urology
recommendation
3. Troponin elevation from nonischemic cardiomyopathy related -echocardiogram showing preserved EF. Have history of CAD. No ongoing chest pain.
Original Note:
Today's Communication/Plan
-
repeat blood cultures
monitor temp
continue ertapenem day 3
downgrade to med/surg
Assessment / Plan
Assessment / Plan
Impression:
Complicated Urinary tract infection vs prostatitis
ESBL Klebsiella bacteremia
Constipation
Non-[place] troponin elevation
HLD
History of CAD
Recent dx of prostate cancer
Plan:
Complicated UTI vs prostatitis
likely due to recent prostate biopsy
Afebrile, no leukocytosis, stable.
Denies abdominal pain, back pain. N,V
repeat 2/2 shows no growth
Continue medical management with Ertapenem (strong gram neg coverage) - day 3
Flomax to help bladder relaxation
Bauer in situ for urinary retention
Voiding trails
CT scan negative for pelvic abscess. It shows enlarged prostate.
ID and urology following
ESBL Klebsiella bacteriemia
Hemodynamically stable
repeat blood cultures 2/2 shows no growth
Continue ertapenem day 3.
Treatment for gram-negative bacteremia is for at least 2 weeks.
Monitor temp curve
Downgrade to med/surg
Constipation
Ordered Colace BID as needed
Non troponin [place] elevation
possible due to infection
Levels are trending down - 1.130<1.790
HLD
Continue atorvastatin
History of CAD
Continue ASA, toprol
Denies CP, SOB.
EKG changes showed RBBB and sinus tachy. However patient's HR today is normal. Elevation of HR likely due to infection/fever.
ECHO findings - Normal left ventricular size, wall thickness and systolic function. No regional wall motion abnormalities are seen. LV ejection fraction is 60-65%.
Recent dx of prostate cancer
CODE STATUS - FULL CODE
DVT ppx- Heparin SC
DIET- chol lowering
Anticipated Discharge: 24 - 48 hours
Subjective/Interval History
-
Date of Service: June 14, 2024
Patient denies abdominal pain, nausea, vomiting.
Objective Data
-
Labs:
Laboratory Results
06/14/24
04:27
WBC 5.5
Hgb 12.2 L
Hct 33.6 L
Plt Count 122 L D
Sodium 138
Potassium 4.0
Chloride 106
Carbon Dioxide 23
BUN 12
Creatinine 0.9
Glucose 111 H
Calcium 8.3 L
Vital Signs:
Vital Signs
Temp Pulse Resp BP Pulse Ox
98.4 F 62 17 133/76 97
06/14/24 07:31 06/14/24 04:00 06/14/24 04:00 06/14/24 00:00 06/13/24 20:29
I&O
06/13/24 06/14/24 06/15/24
06:59 06:59 06:59
Intake Total 3350 / 3350 360 / 360
Output Total 1590 / 1590 2500 / 2500
Balance 1760 / 1760 -2140 / -2140
Review of Systems
-
History Source: Patient
All other systems: Reviewed and negative
Physical Exam
-
General: Comfortable
HEENT: Normocephalic and Atraumatic
Respiratory: Clear to Auscultation
Cardiac: Regular Rhythm and S1/S2
GI: Soft, Nontender and Nondistended
Genito-urinary: Bauer
Musculoskeletal: No Edema
Neuro: AO x 3
Psych: Calm
Data Reviewed
-
Labs: Labs Reviewed by me and Discussed with Physician
--- NOTE | 2024-06-14 08:49 | W.PN.ID1 ---
Date of Service
Date of Service: June 14, 2024
Today's Communication
- getting core Ts - fever defined as over 101.0; no jennifer fevers overnight
- had lewis placed for retention with 500 ccs out output - has been started on flomax this admission
- repeat blood cultures not necessary for gram negative bacteremia with known source, dissemination unlikely
Assessment / Plan
# Complicated UTI
# ESBL-Klebsiella bacteremia
# Recent hx prostate bx, + localized prostate CA
# Fever, bandemia
- getting core Ts - fever defined as over 101.0; no jennifer fevers overnight
- had lewis placed for retention with 500 ccs out output - has been started on flomax this admission
- repeat blood cultures not necessary for gram negative bacteremia with known source, dissemination unlikely
- c/w Ertapenem 1g IV q24 awaiting sensitivities
- CT AP nonrevealing
- 06/13 blood culture in progress no growth to date
- Trend temp
Chief Complaint
-: UTI
Subjective / Review of Systems
getting core Ts - fever defined as over 101.0; no jennifer fevers overnight - patient reports he didnt feel feverish
bp stable
had lewis placed for retention with 500 ccs out output
Vital Signs / Physical Exam
Vital Signs
Vital Signs
Temp Pulse Resp BP Pulse Ox
98.4 F 62 17 133/76 97
06/14/24 07:31 06/14/24 04:00 06/14/24 04:00 06/14/24 00:00 06/13/24 20:29
Physical Exam
Constitutional: No Acute Distress
Cardiovascular: Regular Rate and S1/S2; Negative Murmur or Rub
Pulmonary: Clear and Symmetric; Negative Wheezes or Rales
Gastrointestinal: Soft, Non Tender, Non Distended and Normal Bowel Sounds
Genito-Urinary: Other (mildly cloudy urine)
Skin: Warm and Dry; Negative Rash or Jaundice
Objective Data
Lab Data
Lab Results
06/14/24 04:27
06/14/24 04:27
Estimated Creat Clear 68 ml/min 06/14/24 04:27
Lactic Acid 1.0 mmol/L (0.7-2.0) 06/12/24 21:54
Total Bilirubin 1.5 mg/dl (0.2-1.3) H 06/12/24 07:04
AST 31 U/L (17-59) 06/12/24 07:04
ALT 32 U/L (0-50) 06/12/24 07:04
Alkaline Phosphatase 72 U/L (38-126) 06/12/24 07:04
Most recent labs reviewed.
Micro Results:
06/13/24 03:58 Blood Culture - Preliminary
Blood/Venous No Growth in 24 hours- Final report to follow
06/12/24 09:22 Blood Culture - Preliminary
Blood/Venous Klebsiella pneumoniae-ESBL
Gram Stain - Preliminary
06/11/24 19:04 Blood Culture - Preliminary
Blood/Venous Klebsiella pneumoniae-ESBL
Gram Stain - Final
06/11/24 19:04 Blood Culture - Preliminary
Blood/Venous Klebsiella pneumoniae-ESBL
Gram Stain - Final
06/11/24 19:04 Urine Culture - Preliminary
Urine Gram negative bacilli
--- NOTE | 2024-06-14 11:45 | CM ---
CM met with pt bedside
Pt resides with his spouse, dtr, BEN, and grandchildren (9 and 12 y/o) in a multi-story house, 2 JUSTA
Pt has a 1st floor set up
Pt notes independence with his ADLs, drives+
Has a SPC from prior injury for use as needed
Financially secure
PCP- Bouchra Atkins
Rx- [facility]
ID following and currently on IV ertapenem for UTI
Discharge Disposition- home, follow for abx needs
--- NOTE | 2024-06-14 12:06 | W.PN.URO.CBU ---
Today's Communication / Plan
-
WILL REASSES IN AM FOR POSSIBLE VOIDINGTRIAL ONFLOMAX
Assessment / Plan
-
uroepsis s/p reote postae bx agree with iv ans pt is voind to completio ct scan reviewed no abcess continue present care add flomax voiding trial if stablke saturday
Diagnosis
-
Date of Service: June 14, 2024
-
Patient Diagnosis:
Post Op Day:
Patient Diagnosis:
Post Op Day:
Patient Diagnosis:sepsis 1 month after transrecta l needle bx pda 10 pos postae ancer had abs x wek then off 1 weklater had dysuria frequeny no rettention temp 104 ps blood cxs beeter now on iv abs
Post Op Day:
Subjective
-
BETTER EVERY DAY
Objective
-
Vital Signs
Temp Pulse Resp BP Pulse Ox
98.4 F 62 17 133/76 97
06/14/24 07:31 06/14/24 04:00 06/14/24 04:00 06/14/24 00:00 06/13/24 20:29
Intake and Output
06/13/24 06/14/24 06/15/24
06:59 06:59 06:59
Intake Total 3350 / 3350 360 / 360
Output Total 1590 / 1590 2500 / 2500
Balance 1760 / 1760 -2140 / -2140
Intake:
Oral fluids 300 / 300 360 / 360
IV fluids (Total) 3000 / 3000
IV piggybacks 50 / 50
Output:
Urine, Bauer 750 / 750 2500 / 2500
Urine, Voided 440 / 440
Straight cath output 400 / 400
Laboratory Results
06/14/24 04:27
06/14/24 04:27
Review of Systems
-
: Difficulty Voiding
Physical Exam
-
General - well developed, well nourished, no acute distress
Chest - clear bilaterally
Abdomen - soft, non-tender, positive bowel sounds, no CVAT, no incisional pain or distention
Genitalia - normal
Rectal - normal
Skin - warm & dry with no rash
Neuro - AOx3, no motor deficits
Extremities - no clubbing, no cyanosis, no edema
Incision - clean, dry
Dressing - clean, dry, intact
Care Review
Data Reviewed
Discussed with: Hospitalist and Nursing
[2024-06-14] MEDS: INVANZ 60 MG IV (14:30)
[2024-06-14 16:00] VITALS: BP 126/80
[2024-06-14] MEDS: TYLENOL 650 MG PO (18:53)
--- NOTE | 2024-06-14 22:03 | PTCARENOTE ---
Change of shift Pt having hip pain and fever. Tylenol given by day shift. Pt fever now at 99.2. Pt had no other complaints at this time. Call sanders within reach. Bed alarm on. Assessment care and vitals as charted.
[2024-06-14 22:20] VITALS: BP 123/68
--- NOTE | 2024-06-15 03:53 | PTCARENOTE ---
Pt appearing to get rest through out the nigh. Respirations even unlabored. Pt having fever early in shift, Tylenol given. Pt Baure in place per urology possible voiding trial this week. Assessment care and vitals as charted.
[2024-06-15 06:15] VITALS: BP 141/79
[2024-06-15 06:38] LABS: Hematocrit 30.4 % (39.0-52.0); Hemoglobin 11.3 g/dL (13.0-18.0); Mean Corp Hgb Conc. 37.2 g/dL (33.0-37.0); Mean Corpuscular Hgb 31.4 pg (27.0-31.0); Mean Corpuscular Volume 84.4 fL (80.0-94.0); Mean Platelet Volume 9.5 fL (7.4-10.4); Platelet Count 127 10^3/uL (130-400); Red Cell Dist. Width 11.9 % (11.5-14.5); White Blood Cell Count 5.5 10^3/uL (4.8-10.8)
[2024-06-15 06:47] LABS: Blood Urea Nitrogen 10 mg/dl (9-20); Calcium 8.2 mg/dl (8.4-10.2); Carbon Dioxide 25 mmol/L (22-30); Chloride 105 mmol/L (98-107); Estimated Creatinine Clearance 61 ml/min; Glucose 119 mg/dl (70-99); Potassium 3.8 mmol/L (3.5-5.1); Sodium 138 mmol/L (135-145); eGFR > 60.00
[2024-06-15] MEDS: COLACE 100 MG PO (08:26)
[2024-06-15] MEDS: LOW STRENGTH ASPIRIN 81 MG PO (08:26)
[2024-06-15] MEDS: SENOKOT-S 1 TABLET PO (08:26)
[2024-06-15] MEDS: LIPITOR 20 MG PO (08:27)
[2024-06-15] MEDS: FLOMAX 0.4 MG PO (08:27)
[2024-06-15] MEDS: HEPARIN 5000 UNITS SC (08:27)
[2024-06-15 08:39] VITALS: BP 143/83
--- NOTE | 2024-06-15 10:00 | W.PN.HOSP.TC ---
Addendum entered and electronically signed by Roland Pozo MD 06/15/24 18:21:
Total time spent on d/c = 34 min. This included today's physical exam, progress note, review of laboratory and diagnostic data, preparation of discharge documents and prescriptions, and discussions about the pt's hospital course and discharge plan
with the patient and other medical office professional instructor involved in the patient's care.
Addendum entered and electronically signed by Roland Pozo MD 06/15/24 10:21:
I saw and evaluated the patient. I reviewed the resident�s note and agree with findings and plan as documented in the resident�s note. No acute complaints
NAD, awake and alert
RRR, normal S1/S2
CTAB
+BS/soft/NT/ND
CN2-12 intact
ESBL Klebsiella pneumoniae UTI/bacteremia:
-likely due to recent prostatic biopsy
-Continue Invanz. Based on sensitivities patient will need to complete antibiotic course with IV antibiotics as he had bacteremia.
-Bauer removed this morning
Original Note:
Today's Communication/Plan
-
continue ertapenem
Patient will continue IV abx at home
picc line for home infusion
events manager informed
Voiding trials
if everything is stable and set up then possible dc tomorrow.
Assessment / Plan
Assessment / Plan
Impression:
Complicated Urinary tract infection vs prostatitis
ESBL Klebsiella bacteremia
Constipation
Non-ID troponin elevation
HLD
History of CAD
Recent dx of prostate cancer
Plan:
Complicated UTI vs prostatitis
likely due to recent prostate biopsy
Afebrile, no leukocytosis, stable.
Denies abdominal pain, back pain. N,V
repeat 2/2 shows no growth
Continue medical management with Ertapenem (strong gram neg coverage) - day 4
Sensitive to amox/clav, ertapenem, meropenem, zosyn, tetracycline and tobramycin.
Flomax to help bladder relaxation
Bauer discontinued. Voiding trials
CT scan negative for pelvic abscess. It shows enlarged prostate.
ID and urology following
ESBL Klebsiella bacteriemia
Hemodynamically stable
repeat blood cultures 2/2 shows no growth
Continue ertapenem day 3.
Treatment for gram-negative bacteremia is for at least 2 weeks.
Monitor temp curve
Downgrade to med/surg
Constipation
Ordered Colace BID as needed
Non troponin [place] elevation
possible due to infection
Levels are trending down - 1.130<1.790
HLD
Continue atorvastatin
History of CAD
Continue ASA, toprol
Denies CP, SOB.
EKG changes showed RBBB and sinus tachy. However patient's HR today is normal. Elevation of HR likely due to infection/fever.
ECHO findings - Normal left ventricular size, wall thickness and systolic function. No regional wall motion abnormalities are seen. LV ejection fraction is 60-65%.
Recent dx of prostate cancer
CODE STATUS - FULL CODE
DVT ppx- Heparin SC
DIET- chol lowering
Anticipated Discharge: 24 - 48 hours
Subjective/Interval History
-
Date of Service: June 15, 2024
Patient was febrile yesterday afternoon 100.7. He denies N,V, abd pain. He states he feels much better. Bauer is out.
Objective Data
-
Labs:
Laboratory Results
06/15/24
06:20
WBC 5.5
Hgb 11.3 L
Hct 30.4 L
Plt Count 127 L
Sodium 138
Potassium 3.8
Chloride 105
Carbon Dioxide 25
BUN 10
Creatinine 1.0
Glucose 119 H
Calcium 8.2 L
Vital Signs:
Vital Signs
Temp Pulse Resp BP Pulse Ox
99 F 90 20 143/83 96
06/15/24 09:12 06/15/24 08:00 06/15/24 08:00 06/15/24 08:39 06/14/24 21:05
I&O
06/14/24 06/15/24 06/16/24
06:59 06:59 06:59
Intake Total 360 / 360 120 / 120
Output Total 2500 / 2500 1800 / 1800 350 / 350
Balance -2140 / -2140 -1680 / -1680 -350 / -350
Review of Systems
-
History Source: Patient
All other systems: Reviewed and negative
Physical Exam
-
General: Comfortable and Conversant
HEENT: Normocephalic and Atraumatic
Respiratory: Clear to Auscultation
Cardiac: Regular Rhythm and S1/S2
GI: Soft, Nontender and Nondistended
Genito-urinary: Negative Bauer
Musculoskeletal: No Edema
Neuro: AO x 3
Psych: Calm
Data Reviewed
-
Labs: Labs Reviewed by me and Discussed with Physician
--- NOTE | 2024-06-15 10:01 | W.PN.URO.CBU ---
Today's Communication / Plan
-
lewis out repalce if difficty voiding and pvr over 399cc
Assessment / Plan
-
uroepsis s/p reote postae bx agree with iv ans pt is voind to completio ct scan reviewed no abcess continue present care add flomax voiding trial if stablke saturday
Diagnosis
-
Date of Service: June 15, 2024
-
Patient Diagnosis:
Post Op Day:
Patient Diagnosis:
Post Op Day:
Patient Diagnosis:
Post Op Day:
Patient Diagnosis:sepsis 1 month after transrecta l needle bx pda 10 pos postae ancer had abs x wek then off 1 weklater had dysuria frequeny no rettention temp 104 ps blood cxs beeter now on iv abs
Post Op Day:
Subjective
-
difficulty voiding
Objective
-
Vital Signs
Temp Pulse Resp BP Pulse Ox
99 F 90 20 143/83 96
06/15/24 09:12 06/15/24 08:00 06/15/24 08:00 06/15/24 08:39 06/14/24 21:05
Intake and Output
06/14/24 06/15/24 06/16/24
06:59 06:59 06:59
Intake Total 360 / 360 120 / 120
Output Total 2500 / 2500 1800 / 1800 350 / 350
Balance -2140 / -2140 -1680 / -1680 -350 / -350
Intake:
Oral fluids 360 / 360 120 / 120
Output:
Urine, Lewis 2500 / 2500 1800 / 1800 350 / 350
Laboratory Results
06/15/24 06:20
06/15/24 06:20
Review of Systems
-
: Difficulty Voiding
Physical Exam
-
General - well developed, well nourished, no acute distress
Chest - clear bilaterally
Abdomen - soft, non-tender, positive bowel sounds, no CVAT, no incisional pain or distention
Genitalia - normal
Rectal - normal
Skin - warm & dry with no rash
Neuro - AOx3, no motor deficits
Extremities - no clubbing, no cyanosis, no edema
Incision - clean, dry
Dressing - clean, dry, intact
Care Review
Data Reviewed
Discussed with: Nursing
--- NOTE | 2024-06-15 10:25 | W.PN.ID1 ---
Date of Service
Date of Service: June 15, 2024
Today's Communication
Ertapenem 1g IV q24 (d4) to complete 14d through 06/25/24.
Assessment / Plan
# Complicated UTI
# ESBL-Klebsiella bacteremia
# Recent hx prostate bx, + localized prostate CA
# Fever, bandemia resolved
- had lewis placed for retention with 500 ccs out output - has been started on flomax this admission
- 06/13 blood culture neg to date
- CT AP nonrevealing
- Ertapenem 1g IV q24 (d4) to complete 14d through 06/25/24.
- Check weekly CBC, CMP, while on abx
- Place midline
-Home infusion sheet submitted to [facility] to set up.
Chief Complaint
-: UTI
Subjective / Review of Systems
Feels much improved.
Vital Signs / Physical Exam
Vital Signs
Vital Signs
Temp Pulse Resp BP Pulse Ox
99 F 90 20 143/83 96
06/15/24 09:12 06/15/24 08:00 06/15/24 08:00 06/15/24 08:39 06/14/24 21:05
Physical Exam
Constitutional: No Acute Distress and Well Developed
Cardiovascular: Regular Rate and S1/S2
Pulmonary: Clear
Gastrointestinal: Soft, Non Tender and Non Distended
Genito-Urinary: Lewis and Clear Urine; Negative CVA Tenderness
Neurological: AO x 3
Objective Data
Lab Data
Lab Results
06/15/24 06:20
06/15/24 06:20
Estimated Creat Clear 61 ml/min 06/15/24 06:20
Lactic Acid 1.0 mmol/L (0.7-2.0) 06/12/24 21:54
Total Bilirubin 1.5 mg/dl (0.2-1.3) H 06/12/24 07:04
AST 31 U/L (17-59) 06/12/24 07:04
ALT 32 U/L (0-50) 06/12/24 07:04
Alkaline Phosphatase 72 U/L (38-126) 06/12/24 07:04
Most recent labs reviewed.
Micro Results:
06/12/24 09:22 Blood Culture - Final
Blood/Venous Klebsiella pneumoniae-ESBL
Gram Stain - Final
06/13/24 03:58 Blood Culture - Preliminary
Blood/Venous No Growth in 48 hours- Final report to follow
06/11/24 19:04 Urine Culture - Final
Urine Klebsiella pneumoniae-ESBL
06/11/24 19:04 Blood Culture - Final
Blood/Venous Klebsiella pneumoniae-ESBL
Gram Stain - Final
06/11/24 19:04 Blood Culture - Final
Blood/Venous Klebsiella pneumoniae-ESBL
Gram Stain - Final
06/12/24 CT a/p: No significant acute abnormality identified in the abdomen or pelvis, as described above. Prostatomegaly. Incidental note of congenital intestinal malrotation.
Care Review
Plan reviewed with: Physician (Dr. Mendoza)
[2024-06-15 10:45] VITALS: BP 138/78
--- NOTE | 2024-06-15 10:45 | PTCARENOTE ---
Received patient from IMU into room 2138. Patient AAOx3, VSS, standby assist to ambulate in room. Bauer pulled in IMU prior to transport per MD order, patient bladder scanned prior to transport by Angeles Lesia RN for 73ml. Patient told to let this RN
know when he urinates in order to obtain post void residual throughout shift, patient verbalized understanding. Patient oriented to room and call sammie sanders appropriately, states no concerns at this time.
[2024-06-15] MEDS: INVANZ 60 MG IV (13:14)
--- NOTE | 2024-06-15 15:30 | W.DCSUMMARY ---
Addendum entered and electronically signed by Roland Pozo MD 06/16/24 12:35:
Lactic acidosis
Severe sepsis
Addendum entered and electronically signed by Roland Pozo MD 06/15/24 18:21:
Read, reviewed, and agree. See same day progress note for additional details.
Original Note:
Discharge Summary
Discharge Data
Date of Admission: 06/11/24
Date of Discharge: 06/15/24
-
Pending Results: No
Hospital Course
Discharging Physician : Dr Mary Mendoza, Dr Roland Pozo
Disposition : Home
Primary care physician : Bouchra Atkins
Principal Discharge diagnosis :
Complicated Urinary tract infection vs prostatitis
ESBL Klebsiella bacteremia
Constipation
Non-AL troponin elevation
Recent dx of prostate cancer
Chronic Discharge diagnosis :
HLD
History of CAD
Recent dx of prostate cancer
Hospital Course :
77 year old male with past medical history for coronary artery disease status post cardiac stent, hyperlipidemia, hypertension, recently diagnosed prostate cancer with a recent prostate biopsy presented to the ED with dysuria, nausea. Patient was
febrile with temp of 101F, chills. lactic acidosis, non AL troponin elevation. EKG was unremarkable. He was started on IV ceftriaxone, IV fluids for complicated UTI. Bauer was initiated due to urinary retention. CT scan of abd/pelvis negative for
prostate abscess. Blood cultures and urine cultures were ordered. Patient continue to spike temp. Blood and urine culture were positive for ESBL Klebsiella. ID and urology were consulted. IV ertapenem was started. Repeat set of blood culture was
negative. On the day of discharge Bauer catheter was removed with voiding trials. The plan is for home IV antibiotics(ertapenem) infusions for 2 weeks until 06/25/24 to complete 14 day course. On the day of discharge patient denies any concerns.
He was stable for discharge with a mid line.
Important imaging findings :
CT ABDOMEN/PELVIS
No significant acute abnormality identified in the abdomen or pelvis, as described above.
2. Prostatomegaly.
3. Incidental note of congenital intestinal malrotation.
ECHO
Normal left ventricular size, wall thickness and systolic function. No regional wall motion abnormalities are seen. LV ejection fraction is 60-65% by Rivas's method of discs. Diastolic function indeterminate. Normal right ventricular size.
Normal right ventricular systolic function. Normal atria. Trace tricuspid regurgitation. Estimated pulmonary artery pressure of 30-35 mmHg. Assuming a right atrial pressure of 8 mmHg. No significant valvular disease.The IVC is of normal size but
demonstrates minimal respiratory variation. Interatrial septum is aneurysmal with no evidence of shunting by color flow Doppler. No intracardiac mass or thrombus formation seen.
No prior study for comparison.
EKG
SINUS TACHYCARDIA
RIGHT BUNDLE BRANCH BLOCK
Procedure findings : NONE
Discharge Plan
-
Patient Disposition: Home (Routine Discharge)
Discharge Diagnosis/Procedures: Complicated Urinary tract infection vs prostatitis
ESBL Klebsiella bacteremia
Constipation
Non-AL troponin elevation
HLD
History of CAD
Recent dx of prostate cancer
Condition: Fair
Diet: Low Cholesterol
Activity: No restrictions
Driving Restrictions: As prior to admission
Bathing Restrictions: None
Other Services: VN
Referrals:
Bouchra Atkins DO [Family Provider] - in less than 1 week
Neil Mcneil MD [Active] - (call dr mcneil [phone] to set up urology fl]ollow up for both infection and uti Helpful if urology can fax any path reports pertinent office notes and [id number] to help in care)
Additional Discharge Medication Instructions: Please call Dr mcneil [phone] to set up urology follow up for both infection and UTI.
IV Ertapenem once a day until 06/25/24 to complete 14 day course.
Please follow up with urology and PCP.
Prescriptions:
Continued
atorvastatin 20 mg Tablet
20 mg PO DAILY
therapeutic multivitamin Tablet
1 tab PO DAILY
aspirin 81 mg Tablet,Chewable
81 mg PO DAILY
metoprolol succinate 25 mg Tablet Extended Release 24 Hr
12.5 mg PO DAILY
ibuprofen-acetaminophen [Advil Dual Action] 125-250 mg Tablet
1 tab PO Q8HPRN PRN (Reason: mild pain)
Discharge Orders:
Discharge Patient (As Directed); Ordered 06/15/24
Ordered By: Mary Mendoza
Discharge Date and Time
Print Language: SAMI
[2024-06-15 15:50] VITALS: BP 131/77
--- NOTE | 2024-06-15 15:52 | CM ---
Patient with Dx UTI, ESBL bacteremia. Juancarlos d/c;ed. Receiving IV Ertapenum. Patient ambulatory in room.
Script received from Dr Childress for IV Ertapenum.
Met with patient and spoke with & daughter Ana (cell [phone]); both agree to d/c home today with [facility] for home IV Abx - daughter agrees to do the IV administration for her father. IMM completed. Daughter will provide transport
home today.
Spoke with [facility] (fax [phone]); referral sent. They are able to accept the case and can deliver Abx/supplies this evening. Patient agreeable to out of pocket cost of $560/week for drug & supplies. Provided daughter's contact
info.
Spoke with [facility] (fax [phone]); they accepted the referral and their nurse can do the home teaching visit tomorrow by 2pm.
Plan home today with [facility] and [facility]GUERO for home IV Ertapenum.
--- NOTE | 2024-06-15 15:52 | PTCARENOTE ---
Patient bladder scanned by tech for 117ml; bladder scanned earlier in shift for 111 ml after urinating 85 ml. MD and resident made aware, patient okay for discharge.
--- NOTE | 2024-06-15 16:43 | PTCARENOTE ---
Patient discharged home with visiting nurses, R midline in place for IV invanz infusion through 06/25/24. L wrist peripheral IV removed by this RN. DC vitals taken by tech. This RN reviewed discharge instructions and medications with patient and
patient's spouse and daughter at bedside, all verbalized understanding. Patient's spouse confirmed patient's flomax script is ready at pharmacy. Patient dressed and belongings gathered with assistance of spouse, taken down to daughter's car at
[facility] via staff escort and wheelchair.
--- NOTE | 2024-06-16 11:35 | PN.CDI ---
CDI
- -
CDI:
Physician Documentation Request
Admit Date: 06/11/24 23:04
Dear Doctor Kelly,
Please review the following and provide your response in the progress notes.
Clinical Indicators:
Documentation in the record on May includes the diagnosis of sepsis. The following clinical information was noted in the record:
06/11 blood and urine culture positive for Klebiella pneumoniae
06/12 Hospitalist Progress note: 'Urinary tract infection
Sepsis secondary to above...Evolving sepsis with gram-negative bacteremia.
Presenting with fever, rigors, dysuria and sense of retention at home.'
06/13 urology: 'Patient Diagnosis:sepsis 1 month after transrecta l needle bx pda 10 pos postae ancer had abs x wek then off 1 weklater had dysuria frequeny no rettention temp 104 ps blood cxs beeter now on iv abs.'
Selected Entries
06/12/24
03:05 06/12/24
06:50 06/12/24
07:45
Temp 100.2 F 103.1 F H 104.5 F H
Pulse 93 92
06/12/24
11:45
Temp 101
Pulse 92
Resp Rate 26
Laboratory Tests
06/11/24 06/11/24 06/12/24
17:44 19:04 07:04
Carbon Dioxide 20 L 15 L
Lactic Acid 2.1 H 8.1 H*
06/12/24 06/13/24
17:39 03:58
Carbon Dioxide 20 L
Lactic Acid 4.3 H*
Recognized standard criteria for this condition and other associated definitions:
�Bacteremia
-Abnormal laboratory test does not indicate a clinically ill patient
�Sepsis
-Systemic manifestations of infection, with 2 or more SIRS criteria which include:
-Fever > 100.4��F or hypothermia < 96.8��F
-Leukocytosis WBC > 12,000 or leukopenia, WBC < 4,000, or > 10% bands
-Tachycardia- > 90 beats/minute
-Tachypnea- RR > 20 breaths/minute or PaCO2 < 32mmHg
Source: Merck Manual 2013
-Documentation should include the known or suspected organism, and the underlying infection, such as UTI or pneumonia
�Severe Sepsis
-Sepsis with associated acute organ dysfunction, such as renal or respiratory failure
-Documentation should indicate the association between the sepsis and the organ dysfunction
�Septic Shock
-Severe sepsis with associated with circulatory failure, evidenced by hypotension and hypoperfusion
Based on the above information and the recognized standard SIRS criteria, please clarify if sepsis is still an accurate diagnosis, and reflective of the patient�s condition, to ensure quality of the medical record.
Please clarify in the Progress Notes:
Sepsis is/was present and is a clinical diagnosis
After study sepsis has been ruled out
Other
Use of terms such as suspected, likely, concern for, or probable (associated with a specific diagnosis that is being evaluated, monitored, or treated as if it exists) are acceptable and can be coded in the inpatient setting, when documented at the
time of discharge.
Thank you,
Shweta Chau RN, BSN
CDI Specialist
Available via [place] [employer]
Please use your independent medical judgment in providing your response.
--- NOTE | 2024-06-16 12:13 | PN.CDI ---
CDI
- -
CDI:
Physician Documentation Request
Admit Date: 06/11/24 23:04
Dear Doctor Kelly,
Please review the following and provide your response in the progress notes.
Clinical Indicators:
Pt admitted with UTI and bacteriemia.
Laboratory Tests
06/11/24 06/11/24 06/12/24
17:44 19:04 07:04
Carbon Dioxide 20 L 15 L
Lactic Acid 2.1 H 8.1 H*
06/12/24 06/13/24
17:39 03:58
Carbon Dioxide 20 L
Lactic Acid 4.3 H*
Based on the above, could you clarify in the progress notes, the appropriate diagnosis, if significant, that supports the above abnormalities and additional evaluation, monitoring and/or treatment rendered:
Septic Shock
Lactic acidosis
Other
Use of terms such as suspected, likely, concern for, or probable (associated with a specific diagnosis that is being evaluated, monitored, or treated as if it exists) are acceptable and can be coded in the inpatient setting, when documented at the
time of discharge.
Thank you,
Shweta Chau RN, BSN
CDI Specialist
Available via [place] [employer]
Please use your independent medical judgment in providing your response.
--- NOTE | 2024-06-17 07:35 | W.PN.UPDATE ---
Update Note
Progress Note Update
PER CDI
Sepsis secondary to complicated UTI
Meets the SIRS criteria.
Lactic Acidosis
down trended in a day with IV antibiotics and fluids
Bacteremia
gram negative - ESBL klebsiella
IV Ertapenem
follow temp curve and temp
repeat blood cultures
-
== END 2024-06-15 17:04 | disposition home health service (06) | DRG 862 ==
LOC: 2 NORTH 23:04
PROVIDERS: Clinical Nurse Specialist Family Health; Emergency Medicine; Internal Medicine; Nurse Practitioner Family; Registered Nurse; Student in an Organized Health Care Education/Training Program; ADMITTING PHYSICIAN Internal Medicine; ATTENDING PHYSICIAN Internal Medicine; CONSULT PHYSICIAN Specialist; EMERGENCY PHYSICIAN Emergency Medicine; FAMILY PHYSICIAN Family Medicine; OTHER PHYSICIAN Internal Medicine Infectious Disease
DX: T81.44XA Sepsis following a procedure, initial encounter (principal); A41.59 Other Gram-negative sepsis; R65.20 Severe sepsis without septic shock; E87.20 Acidosis, unspecified; N39.0 Urinary tract infection, site not specified; C79.51 Secondary malignant neoplasm of bone; R56.00 Simple febrile convulsions; I42.8 Other cardiomyopathies; Z16.12 Extended spectrum beta lactamase (ESBL) resistance; Q43.3 Congenital malformations of intestinal fixation; N41.0 Acute prostatitis; N40.0 Benign prostatic hyperplasia without lower urinary tract symptoms; C61 Malignant neoplasm of prostate; I25.10 Atherosclerotic heart disease of native coronary artery without angina pectoris; R79.89 Other specified abnormal findings of blood chemistry; D69.59 Other secondary thrombocytopenia; I71.40 Abdominal aortic aneurysm, without rupture, unspecified; Y84.8 Other medical procedures as the cause of abnormal reaction of the patient, or of later complication, without mention of misadventure at the time of the procedure; Y92.9 Unspecified place or not applicable; K59.00 Constipation, unspecified; E78.5 Hyperlipidemia, unspecified; I10 Essential (primary) hypertension; Z96.652 Presence of left artificial knee joint; Z95.5 Presence of coronary angioplasty implant and graft; Z79.82 Long term (current) use of aspirin; Z79.1 Long term (current) use of non-steroidal anti-inflammatories (NSAID); Z11.52 Encounter for screening for COVID-19
CPT/HCPCS: 74177; 80048; 80053; 81003; 81015; 82962; 83605; 84484; 85025; 85027; 86803; 87040; 87077; 87086; 87149; 87186; 87205; 87811; 93005; 93306; 96361; 96374; 96375; 99285; J1335; Q9967

== ENCOUNTER 2024-08-30 09:44 | Emergency (ER) | payer MEDICARE, OTHER, SELFPAY ==
[2024-08-30 09:46] VITALS: BP 179/78
[2024-08-30 09:58] VITALS: BMI 29.8
--- NOTE | 2024-08-30 10:14 | ED.GENMED ---
History of Present Illness
General
Chief Complaint: Musculo-Skeletal Complaint
Source: patient and family
Time Seen by Provider: 08/30/24 09:55
History of Present Illness
History of Present Illness:
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
that when he went to get up from laying down and felt as if his right knee kept giving out. Patient notes that over the years she has had pain intermittently to the right knee but this was mainly to the anterior patella versus today's pain which is
mainly within the posterior portion of the knee and proximal gastrocnemius. Patient denies any focal weakness or numbness, fevers or infectious symptoms, erythema or edema, known traumatic injuries. 5 days ago patient did start the hormone therapy
as part of his treatment for prostate cancer and is scheduled to see his oncologist tomorrow for further treatment recommendations.
Past History
Past History
ED Past Medical History: CAD, Cancer (Prostate CA) and Other (AAA, )
ED Past Surgical History: Cardiac (Stents)
Social History
Tobacco: Non-smoker
Alcohol: None
Drug: None
Personal:
Living: with family
Employment: Employed
Review of Systems
Review of Systems
All Other Systems: ROS reviewed and negative except as documented in HPI and ROS
Phy Exam
Physical Exam
Physical Exam:
GENERAL: Alert , in no apparent distress
EYE: conjunctiva clear
Head: Normocephalic atraumatic
NECK: Supple,
ENT: mmm.
LUNGS: no acute respiratory distress
NEUROLOGICAL: Alert and oriented
SKIN: Warm and dry, skin intact. Right lower extremity: No overlying erythema, breaks in the skin or increased warmth
MUSCULOSKELETAL: Right lower extremity: No obvious deformity, edema, ecchymosis, abrasions or lacerations. Patient does allow for full active and passive range of motion but does complain of pain with knee flexion. No increased warmth. No laxity
of the joint. Mild tenderness in the popliteal fossa and proximal gastrocnemius. Easily palpable pedal and tibial pulse. Cap refill less than 2 seconds. Sensation grossly intact to light touch.
PSYCH: Normal and appropriate interaction.
Scores
Heart Failure Risk
Heart Failure Risk Score: Not Applicable
Heart Score for Chest Pain Patients
STEMI patient?: Not applicable
Withdrawal Assessment of Alcohol
Withdrawal Assessment Completed?: Not applicable
Course
Orders/Labs/Results
Orders:
Orders
08/30/24 10:01
Knee, Right 4 or More Views [CR Knee- Right 4 Or More View*] Urgent
Comment:
Reason For Exam: pain/weakness/Decreased ROM
08/30/24 10:08
US Periph Venous LOWER Ext RT Urgent
Comment:
Reason For Exam: pain posterior knee/calf, prostate CA
Vital Signs
Initial and Last Documented VS:
Initial Vital Signs
Temp Pulse Resp BP Pulse Ox
98.1 F 64 16 179/78 99
08/30/24 09:46 08/30/24 09:46 08/30/24 09:46 08/30/24 09:46 08/30/24 09:46
Last Documented Vital Signs
Temp Pulse Resp BP Pulse Ox
98.1 F 57 16 159/84 99
08/30/24 09:46 08/30/24 12:27 08/30/24 09:46 08/30/24 12:27 08/30/24 09:46
MDM/Problems Addressed
Differential Diagnosis Includes:
DVT, bakers cyst, OA, ligamentous/meniscus injury
MDM/Problems Addressed:
78-year-old male presenting to the emergency department for evaluation of atraumatic right posterior knee pain that started last night, difficulty ambulating today. No fevers or infectious symptoms. Recently diagnosed with prostate cancer and has
started treatment with hormonal therapy 5 days ago. Patient does allow for range of motion and no trauma so fracture much less likely. Will check ultrasound to rule out DVT. X-ray ordered as well. Disposition pending
*Radiology
Radiology exam reviewed: radiology read reviewed
*Pulse Oximetry
Patient hypoxic: no
*Critical Care Note
Total Time (30-74mins, 75-104mins- exclusive of procedures): Not Applicable
Patient Management
Escalation/DeEscalation of care consider admission/obs:
Patient's knee x-ray shows degenerative changes and probable posterior loose bodies with a small effusion. Difficult to appreciate the effusion on exam. Ultrasound was ultimately negative for DVT. Patient feels comfortable being discharged home.
Offered further pain manage with oral medications however patient declines and states he will just use [id number] medicines. I provided the patient with information for orthopedics to follow-up with I suspect most of his pain is probably
coming from the degenerative changes and posterior loose bodies seen on x-ray. Patient and family expressed understanding of follow-up recommendations. Stable for discharge home.
ED Attending Note
-
Portions of this chart may have been created with voice recognition software.� Occasional wrong word or��sound alike� substitutions may have occurred due to the inherent limitations of voice recognition software.
Discharge Plan
Departure
Patient Disposition: Home (Routine Discharge)
Date of Disposition: 08/30/24
Time of Disposition: 12:14
Patient with high blood pressure during this ER visit?: Yes
Discharge Problem:
Knee pain, right
Instructions: Knee Pain (DC)
Prescriptions:
No Action
atorvastatin 20 mg Tablet
20 mg PO DAILY
therapeutic multivitamin Tablet
1 tab PO DAILY
aspirin 81 mg Tablet,Chewable
81 mg PO DAILY
metoprolol succinate 25 mg Tablet Extended Release 24 Hr
12.5 mg PO DAILY
ibuprofen-acetaminophen [Advil Dual Action] 125-250 mg Tablet
1 tab PO Q8HPRN PRN (Reason: mild pain)
tamsulosin 0.4 mg Capsule
0.4 mg PO DAILY Qty: 30 0RF
Referrals:
Pranav Vasques MD [Family Provider] -
Cecil Boyce MD [Active] - (Ortho - Please call for appointment)
Interventions
Interventions:
*Risk Screen - Suicide Last Done: 08/30/24 12:16
*General Assessment Last Done: 08/30/24 09:59
*Neglect/Abuse Screening Last Done: 08/30/24 12:16
ED- Fall Risk Assessment Last Done: 08/30/24 09:59
*ED COVID-19 Vaccine History Last Done: 08/30/24 09:59
*Nursing Disposition Last Done: 08/30/24 12:27
ED-Musculoskeletal Assessment Last Done: 08/30/24 10:00
Discharge Date and Time
Discharge Date/Time: 08/30/24 12:27
Print Language: MONTENEGRIN
[2024-08-30 12:27] VITALS: BP 159/84
== END 2024-08-30 12:27 | disposition home or self-care (01) ==
LOC: EMR 09:44
PROVIDERS: EMERGENCY PHYSICIAN Emergency Medicine; FAMILY PHYSICIAN Internal Medicine
DX: M25.561 Pain in right knee (principal); M79.661 Pain in right lower leg; M25.461 Effusion, right knee; I25.10 Atherosclerotic heart disease of native coronary artery without angina pectoris; I71.40 Abdominal aortic aneurysm, without rupture, unspecified; C61 Malignant neoplasm of prostate; Z86.79 Personal history of other diseases of the circulatory system; Z95.5 Presence of coronary angioplasty implant and graft
CPT/HCPCS: 99284; 73564; 93971

== ENCOUNTER 2024-10-20 06:27 | Day surgery (SDC) | payer MEDICARE, OTHER, SELFPAY | END 2024-10-20 14:56 | disposition home or self-care (01) | LOC: GI 06:27 | PROVIDERS: ATTENDING PHYSICIAN Internal Medicine | DX: Z12.11 Encounter for screening for malignant neoplasm of colon (principal); K64.8 Other hemorrhoids; K63.89 Other specified diseases of intestine; K57.30 Diverticulosis of large intestine without perforation or abscess without bleeding; D12.5 Benign neoplasm of sigmoid colon; K52.89 Other specified noninfective gastroenteritis and colitis; Z86.0101 Personal history of adenomatous and serrated colon polyps | CPT/HCPCS: 45385; 45380; 88305 ==

== ENCOUNTER 2024-11-13 06:25 | Day surgery (SDC) | payer MEDICARE, OTHER, SELFPAY | END 2024-11-13 12:25 | disposition home or self-care (01) | LOC: GI 06:25 | PROVIDERS: ATTENDING PHYSICIAN Internal Medicine | DX: K57.30 Diverticulosis of large intestine without perforation or abscess without bleeding (principal); K64.8 Other hemorrhoids; Z86.0101 Personal history of adenomatous and serrated colon polyps; D12.5 Benign neoplasm of sigmoid colon | CPT/HCPCS: 45338; 88305 ==

== ENCOUNTER 2024-11-20 17:00 | Emergency (ER) | payer MEDICARE, OTHER, SELFPAY ==
[2024-11-20 17:01] VITALS: BP 161/84
--- NOTE | 2024-11-20 18:43 | ED.GENMED ---
History of Present Illness
General
Chief Complaint: Swelling
Source: patient and spouse
Exam Limitations: none
Time Seen by Provider: 11/20/24 18:11
Nursing documentation reviewed up to this point in time: agreed with except (Patient denies swelling)
History of Present Illness
History of Present Illness:
78-year-old male with history as documented notable for metastatic prostate cancer presents to the ER with his for evaluation of pain and tingling in his hands and feet as well as rash on the hands. Patient has metastatic prostate cancer has
been following with Dr. Mcneil for urology, Dr. Matt for oncology and is currently consulting with a radiation oncologist as well. He received Lupron injection 2 months ago. He says that about a month later he began to develop tingling in his
hands and his feet and some aching in his hands. Over the past few days has had increasing pain in the hands and developed rash which is painful/sensitive to the touch. Denies any trauma or injury. He denies any other complaints including chest
pain or shortness of breath. Denies any weakness in the hands or feet. He denies any rash on the rest of his body. Triage note mentions swelling but patient has not noted any swelling in the hands or feet.
Past History
Past History
ED Past Medical History: CAD, Cancer (Prostate CA) and Other (AAA, )
ED Past Surgical History: Cardiac (Stents)
Social History
Tobacco: Non-smoker
Alcohol: None
Drug: None
Personal:
Living: with family
Employment: Employed
Review of Systems
Review of Systems
All Other Systems: ROS reviewed and negative except as documented in HPI and ROS
Constitutional: Denies fever
Respiratory: Denies trouble breathing
Cardiac: Denies chest pain
ABD/GI: Denies abdominal pain or vomiting
Musculoskeletal: Reports other (Paresthesias); Denies edema
Skin: Reports rash
Phy Exam
Physical Exam
Physical Exam:
General: Awake, alert, oriented x3; no acute distress
Head: Normocephalic, atraumatic
Eyes: Conjunctiva normal, sclera anicteric
Throat: Airway intact, handling secretions, no cracking of the lips or mucous membrane ulcerations
Neck: Trachea midline, supple without meningismus
Lungs: Clear to auscultation bilaterally, no wheezing, rales, rhonchi
Heart: Regular rate and rhythm, no murmurs, gallops, or rubs
Abd: Soft, non distended, nontender
Neuro: No gross deficits
Skin: On the dorsal aspect of digits each hand patient has faint erythema, dryness of the skin with some cracking of the skin as pictured�these areas are very sensitive to the touch but not swollen, not warm or indurated; no rash noted on the feet
or the rest of the body
Extremities: No edema in extremities, equal pulses in all extremities�strong radial pulses and DP pulses bilaterally
Scores
Heart Failure Risk
Heart Failure Risk Score: Not Applicable
Heart Score for Chest Pain Patients
STEMI patient?: Not applicable
Withdrawal Assessment of Alcohol
Withdrawal Assessment Completed?: Not applicable
Course
Orders/Labs/Results
Orders:
Orders
11/20/24 19:51
Complete Blood Count/With Diff Urgent
Comprehensive Metabolic Panel Urgent
Abnormal Lab Results
11/20/24
19:51
RBC 4.07 L 10^6/uL
(4.70-6.10)
Hgb 12.5 L g/dL
(13.0-18.0)
Hct 35.2 L %
(39.0-52.0)
11/20/24 19:51
11/20/24 19:51
Vital Signs
Initial and Last Documented VS:
Initial Vital Signs
Temp Pulse Resp BP Pulse Ox
37.2 C 64 16 161/84 97
11/20/24 17:01 11/20/24 17:01 11/20/24 17:01 11/20/24 17:01 11/20/24 17:01
Last Documented Vital Signs
Temp Pulse Resp BP Pulse Ox
37.2 C 64 16 130/76 97
11/20/24 17:01 11/20/24 17:01 11/20/24 17:01 11/20/24 19:16 11/20/24 19:17
Procedures
Ring removal
Ring removed with: ring cutters
Is finger swollen distally?: No
Distal sensation: intact to touch
Distal capillary refill: brisk
MDM/Problems Addressed
Differential Diagnosis Includes:
Drug reaction, dry skin, claudication, DVT considered very unlikely clinically
MDM/Problems Addressed:
78-year-old male presents for evaluation of tingling and aching in the hands as well as a rash on the hands worsening over the past month. Symptoms started about a month after he had Lupron injection for metastatic prostate cancer. Hypertensive
otherwise normal vitals. Physical exam as above. Case discussed with oncology regarding whether this could potentially be drug reaction to Lupron. He has no signs of vascular compromise�there is no signs of venous stasis or edema to suggest DVT
and he has brisk capillary refill with strong distal pulses going against any arterial occlusion. Although some erythema of the skin does not appear consistent with a cellulitis given bilateral distribution. It could be just dry skin. Can check
basic screening labs to rule out any signs of thrombocytopenia/cell count abnormalities. He did have a ring on his left hand which I removed in case he does develop swelling.
Labs reviewed: CBC shows marginal anemia but otherwise unremarkable. His CMP shows no clinically significant abnormalities. At this point I have low suspicion for emergent pathology. He has nothing to suggest vascular compromise. He has no signs
of anaphylaxis and somewhat doubt this is a delayed hypersensitivity based on the timeline. He has no signs of dress sore SJS or any other emergent rash. I think at this point it would be reasonable to trial Aquaphor/moisturizer and have patient
follow-up with his primary doctor as an outpatient.
Chronic conditions affecting care:
Metastatic prostate cancer
*Pulse Oximetry
Patient hypoxic: no
*Critical Care Note
Total Time (30-74mins, 75-104mins- exclusive of procedures): Not Applicable
Data Reviewed
Source: patient and spouse
Patient Management
Discussion with other providers: [employer] (Discussed with oncology)
ED Attending Note
-
Portions of this chart may have been created with voice recognition software.� Occasional wrong word or��sound alike� substitutions may have occurred due to the inherent limitations of voice recognition software.
Discharge Plan
Departure
Prescriptions:
No Action
atorvastatin 20 mg Tablet
20 mg PO DAILY
therapeutic multivitamin Tablet
1 tab PO DAILY
aspirin 81 mg Tablet,Chewable
81 mg PO DAILY
metoprolol succinate 25 mg Tablet Extended Release 24 Hr
12.5 mg PO DAILY
ibuprofen-acetaminophen [Advil Dual Action] 125-250 mg Tablet
1 tab PO Q8HPRN PRN (Reason: mild pain)
tamsulosin 0.4 mg Capsule
0.4 mg PO DAILY Qty: 30 0RF
Referrals:
Pranav Vasques MD [Family Provider] -
Interventions
Interventions:
ED- Fall Risk Assessment Last Done: 11/20/24 19:21
ED- Cardiac Assessment Last Done: 11/20/24 19:24
ED- Pulmonary Assessment Last Done: 11/20/24 19:21
ED-Skin Assessment Last Done: 11/20/24 19:21
Discharge Date and Time
Print Language: POLISH
[2024-11-20 19:16] VITALS: BP 130/76
[2024-11-20 19:24] VITALS: BMI 27.7
[2024-11-20 19:58] LABS: % Basophils 0.9 % (0-2); % Eosinophils 1.9 % (0-6); % Immature Granulocytes 0.2 % (0-0.5); % Lymphocytes 33.4 % (20.5-51.1); % Monocytes 7.5 % (1.7-9.3); % Neutrophils 56.1 % (42.2-75.2); Absolute Basophils 0.1 10^3/uL (0-0.2); Absolute Eosinophils 0.1 10^3/uL (0-0.7); Absolute Lymphocytes 1.8 10^3/uL (1.2-3.4); Absolute Monocytes 0.4 10^3/uL (0.1-0.6); Hematocrit 35.2 % (39.0-52.0); Hemoglobin 12.5 g/dL (13.0-18.0); Mean Corp Hgb Conc. 35.5 g/dL (33.0-37.0); Mean Corpuscular Hgb 30.7 pg (27.0-31.0); Mean Corpuscular Volume 86.5 fL (80.0-94.0); Mean Platelet Volume 8.7 fL (7.4-10.4); Nucleated Red Blood Cells % 0 % (-); Platelet Count 166 10^3/uL (130-400); Red Blood Cell Count 4.07 10^6/uL (4.70-6.10); Red Cell Dist. Width 12.4 % (11.5-14.5); White Blood Cell Count 5.3 10^3/uL (4.8-10.8)
[2024-11-20 20:14] LABS: ALT (SGPT) 34 U/L (0-50); AST (SGOT) 28 U/L (17-59); Albumin 4.2 g/dl (3.5-5.0); Alkaline Phosphatase 76 U/L (38-126); Blood Urea Nitrogen 18 mg/dl (9-20); Calcium 9.1 mg/dl (8.4-10.2); Carbon Dioxide 25 mmol/L (22-30); Chloride 103 mmol/L (98-107); Estimated Creatinine Clearance 55 ml/min; Glucose 95 mg/dl (70-99); Potassium 4.4 mmol/L (3.5-5.1); Sodium 135 mmol/L (135-145); Total Bilirubin 0.7 mg/dl (0.2-1.3); Total Protein 6.9 g/dl (6.3-8.2); eGFR > 60.00
== END 2024-11-20 20:50 | disposition home or self-care (01) ==
LOC: EMR 17:00
PROVIDERS: EMERGENCY PHYSICIAN Emergency Medicine; FAMILY PHYSICIAN Internal Medicine
DX: R21 Rash and other nonspecific skin eruption (principal); I25.10 Atherosclerotic heart disease of native coronary artery without angina pectoris; Z85.46 Personal history of malignant neoplasm of prostate; Z95.5 Presence of coronary angioplasty implant and graft
CPT/HCPCS: 99283; 80053; 85025